=== PATIENT | female | born 1980 | race African-American/Black ===

== ENCOUNTER 2017-06-04 04:10 | Inpatient (IN) | payer OTHER ==
[2017-06-04 05:20] LABS: BASOPHIL 0.5 % (0-2.0); EOSINOPHIL 0.7 % (0-4.5); MCH 30.1 pg (25.7-33.7); MCHC 33.2 g/dl (32.0-36.0); MEAN CELL VOLUME 90.6 fl (80-96); MEAN PLT VOLUME 8.8 fl (7.5-11.1); NEUTROPHILS 74.2 % (42.8-82.8); PLATELET COUNT 320 K/MM3 (134-434); RDW 14.2 % (11.6-15.6)
[2017-06-04] MEDS ORDERED: DEXTROSE 5%-LACTATED RINGERS 1,000 ML IV SCH (05:30)
[2017-06-04] MEDS ORDERED: CLINDAMYCIN 600MG PREMIX IVPB 600 MG/50 ML BAG IVPB SCH ×2 (05:30→11:00)
[2017-06-04] MEDS ORDERED: DINOPROSTONE 10 MG VAGINAL SUPPOSITORY VG ONE (05:30)
[2017-06-04 05:34] LABS: INR 0.96 (0.82-1.09); PROTHROMBIN TIME (PATIENT) 10.8 SEC (9.98-11.88)
[2017-06-04 05:36] LABS: ACTIVATED PTT 27.7 SECONDS (26.9-34.4)
[2017-06-04 05:38] VITALS: BMI 30.8
--- NOTE | 2017-06-04 05:39 | HP ---
Past Medical History - Admission Chief Complaint: Rupture of membrane History Source: Patient Limitations to Obtaining History: No Limitations - Past Medical History ...: 5 ...Para: 2 ...EDC by Jose Luis: 06/07/17 - Past Surgical History Past Surgical History: Yes: None Hx Myomectomy: No Hx Transabdominal Cerclage: No - Smoking History Smoking history: Current every day smoker Aproximately how many cigarettes per day: 4 - Alcohol/Substance Use Hx Alcohol Use: No History of Substance Use: reports: None - Social History History of Recent Travel: No Home Medications - Allergies Allergies/Adverse Reactions: Allergies Allergy/AdvReac Type Severity Reaction Status Date / Time acetaminophen [From Vicodin] Allergy Intermediate Itching Verified 06/04/17 05: 02 hydrocodone bitartrate Allergy Intermediate Itching Verified 06/04/17 05:02 [From Vicodin] Penicillins Allergy Intermediate Hives Verified 06/04/17 05:02 - Home Medications Home Medications: Ambulatory Orders Albuterol Sulfate Inhaler - [Ventolin Hfa Inhaler -] 1 - 2 inh PO PRN PRN Vit No.130/Iron/FA [ Vitamins] 1 each PO DAILY 05/26/17 Family Disease History - Family Disease History Family History: Unremarkable Review of Systems - Review of Systems Constitutional: reports: No Symptoms Eyes: reports: No Symptoms HENT: reports: No Symptoms Neck: reports: No Symptoms Cardiovascular: reports: No Symptoms Respiratory: reports: No Symptoms Gastrointestinal: reports: No Symptoms Genitourinary: reports: Other (Gross pooling) Breasts: reports: No Symptoms Reported Musculoskeletal: reports: No Symptoms Neurological: reports: No Symptoms Psychiatric: reports: No Symptoms Pain Intensity: 0 Physical Exam - Maternity Constitutional: Yes: Well Nourished Eyes: Yes: Conjunctiva Clear HENT: Yes: Atraumatic Neck: Yes: Supple Cardiovascular: Yes: Regular Rate and Rhythm Lungs: Clear to auscultation - Abdominal Exam/OB Number of Fetuses: Single Presentation: Vertex - Vaginal Exam/OB Vaginal Bleediing: No Speculum Exam: No Dilatation (cm): 1 Effacement (%): 50 Amniotic Fluid: Yes: Clear Station: -4 - Physical Exam Musculoskeletal: Yes: WNL Extremities: Yes: WNL ...Motor Strength: WNL Psychiatric: Yes: Alert, Oriented - Labs Lab Results: CBC, BMP 06/04/17 04:55 Problem List - Problems (1) Spontaneous rupture of amniotic membranes Code(s): [id number] - Assessment/Plan Spontaneous rupture of membrane Admit to L&D Cervidil induction Re-Evaluate in 12 hours or before if indicated
[2017-06-04 05:47] LABS: ANION GAP 11 (8-16); CALCIUM 8.2 mg/dL (8.5-10.1); CO2 21 mmol/L (21-32); CREATININE 0.4 mg/dL (0.55-1.02); GLUCOSE,RANDOM 76 mg/dL (74-106)
[2017-06-04 05:48] LABS: URINE APPEARANCE CLOUDY; URINE BILIRUBIN NEGATIVE (NEGATIVE); URINE BLOOD NEGATIVE (NEGATIVE); URINE COLOR YELLOW; URINE GLUCOSE (UA) NEGATIVE (NEGATIVE); URINE KETONE 1+ (NEGATIVE); URINE NITRITE NEGATIVE (NEGATIVE); URINE PROTEIN NEGATIVE (NEGATIVE); URINE UROBILINOGEN NEGATIVE mg/dL (0.2-1.0)
[2017-06-04 05:48] LABS: SGOT/AST 13 U/L (15-37); SGPT/ALT 23 U/L (12-78)
[2017-06-04 06:05] LABS: URINE MARIJUANA THC POSITIVE ng/ml (CUTOFF=50)
[2017-06-04] MEDS ORDERED: CLINDAMYCIN 900 MG PREMIX IVPB 900 MG/50 ML BAG IVPB SCH (09:00)
[2017-06-04] MEDS: OXYTOCIN 20 UNITS in 0.9% NS 20 UNIT/1,000 ML INFUS.BAG IV SCH ×2 (11:15→12:22)
[2017-06-04] MEDS ORDERED: BENZOCAINE 20% 57 GM BOTTLE TP PRN (11:17)
[2017-06-04] MEDS ORDERED: BISACODYL 10 MG SUPP.RECT RC PRN (11:17)
[2017-06-04] MEDS ORDERED: BENZOCAINE 28 GM HEMORRHOIDAL OINTMENT TP PRN (11:17)
[2017-06-04] MEDS ORDERED: ACETAMINOPHEN 325 MG TABLET (FP) PO PRN (11:17)
[2017-06-04] MEDS ORDERED: METHYLERGONOVINE MALEATE 0.2 MG/1 ML AMP IM PRN (11:17)
[2017-06-04] MEDS ORDERED: WITCH HAZEL 50% (TUCKS) 40 PAD/JAR PAD TP PRN (11:17)
--- NOTE | 2017-06-04 11:21 | PN ---
Delivery - Delivery Vaginal Delivery: Spontaneous Type of Anesthesia: Local Episiotomy/Laceration: None EBL (cc): 250 Delivery, Single - Feeding Plan Initial Plan: Elected not to breastfeed exclusively throughout hospitalization Remarks - Remarks Remarks: Normal spontaneous vaginal delivery of a live boy over intact perineum. Nose / Oropharynx suctioned @ perineum. Nuchal cord x 1 clamped and cut. Placenta expelled spontaneously intact. Mother in stable condition
[2017-06-04 12:39] LABS: URINE LEUK ESTERASE Negative (NEGATIVE)
[2017-06-04] MEDS: IBUPROFEN 600 MG TABLET (FP) PO PRN ×3 (12:51→22:20)
[2017-06-04] MEDS: FERROUS SO4 325 MG TABLET (FP) PO SCH ×2 (12:51→17:16)
[2017-06-05] MEDS: IBUPROFEN 600 MG TABLET (FP) PO PRN ×2 (02:17→15:09)
--- NOTE | 2017-06-05 03:59 | PN ---
Post Progress Note - Subjective Subjective: 37 yo Para 3 status post vaginal delivery, seen and evaluated. Doing well, no complaints. Post Day: 1 Type of Delivery: Vital Signs: Vital Signs Temperature 98.3 F 06/05/17 01:32 Pulse Rate 84 06/05/17 01:32 Respiratory Rate 18 06/05/17 01:32 Blood Pressure 141/83 06/05/17 01:32 O2 Sat by Pulse Oximetry (%) 100 06/04/17 12:15 Uterus: Yes: Fundus Firm Abdomen/GI: Yes: Tolerating PO Lochia: Yes: Rubra Lochia, amount: Moderate Extremities: Yes: Calves non-tender Perineum: Yes: Laceration (Healing) Activity: Ambulating - Labs Labs: CBC WBC 10.0 K/mm3 (4.0-10.0) 06/04/17 04:55 RBC 3.26 M/mm3 (3.60-5.2) L 06/04/17 04:55 Hgb 9.8 GM/dL (10.7-15.3) L 06/04/17 04:55 Hct 29.5 % (32.4-45.2) L 06/04/17 04:55 MCV 90.6 fl (80-96) 06/04/17 04:55 MCH 30.1 pg (25.7-33.7) 06/04/17 04:55 MCHC 33.2 g/dl (32.0-36.0) 06/04/17 04:55 RDW 14.2 % (11.6-15.6) 06/04/17 04:55 Plt Count 320 K/MM3 (134-434) 06/04/17 04:55 MPV 8.8 fl (7.5-11.1) 06/04/17 04:55 Neutrophils % 74.2 % (42.8-82.8) 06/04/17 04:55 Lymphocytes % 19.1 % (8-40) 06/04/17 04:55 Monocytes % 5.5 % (3.8-10.2) 06/04/17 04:55 Eosinophils % 0.7 % (0-4.5) D 06/04/17 04:55 Basophils % 0.5 % (0-2.0) 06/04/17 04:55 Retic Count 2.07 % (0.5-1.5) H 06/04/17 04:55 Problem List - Problems (1) Spontaneous rupture of amniotic membranes Code(s): LON0706 - (2) Status post vaginal delivery Code(s): ZUM6776 - Assessment/Plan Status post vaginal delivery Stable Continue routine care
--- NOTE | 2017-06-05 04:02 | DS ---
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 Vital Signs: Vital Signs Temperature 98.3 F 06/05/17 01:32 Pulse Rate 84 06/05/17 01:32 Respiratory Rate 18 06/05/17 01:32 Blood Pressure 141/83 06/05/17 01:32 O2 Sat by Pulse Oximetry (%) 100 06/04/17 12:15 Constitutional: Yes: Well Nourished Eyes: Yes: Conjunctiva Clear HENT: Yes: Atraumatic Neck: Yes: Supple Cardiovascular: Yes: Regular Rate and Rhythm Respiratory: Yes: Regular Gastrointestinal: Yes: Normal Bowel Sounds ...Rectal Exam: Yes: WNL External Genitalia: Yes: Normal Vaginal Exam: Yes: Normal Cervix: Yes: Normal Uterus: Yes: Firm ....Post : Yes: Uterus firm Neurological: Yes: Alert, Oriented ...Motor Strength: WNL Psychiatric: Yes: Alert, Oriented Labs: CBC, BMP 06/04/17 04:55 06/04/17 04:55 Delivery - Delivery Vaginal Delivery: Spontaneous Type of Anesthesia: Local Episiotomy/Laceration: None EBL (cc): 250 Delivery, Single - Stages of Labor Date 1st Stage Initiatied: 06/04/17 Time 1st Stage Initiated: 03:30 Date 2nd Stage Initiated: 06/04/17 Time 2nd Stage Initiated: 10:57 Date of Delivery: 06/04/17 Time of Delivery: 11:05 Time Placenta Delivered: 11:15 - 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 Present: Yes Name: Linda Giron Gender: Male Weight: 5 lb 10 oz Position: Left, OA Total Hours ROM (Hrs/Mins): 7hrs 35min - 1 Minute Total Score: 9 5 Minutes Total Score: 9 - [place] Feeding Plan Initial Plan: Elected not to breastfeed exclusively throughout hospitalization Discharge Summary Reason For Visit: LABOR ADMIT Current Active Problems Spontaneous rupture of amniotic membranes (Acute) Status post vaginal delivery (Acute) Procedures: Principal: Normal spontaneous vaginal delivery Hospital Course: Routine care Condition: Good - Instructions Diet, Activity, Other Instructions: Regular diet No douching, no sexual intercourse x 6 weeks F/U with MD in 6 weeks Referrals: Anette Villarreal MD [Staff Physician] - Disposition: HOME - Home Medications Comprehensive Discharge Medication List: Ambulatory Orders Albuterol Sulfate Inhaler - [Ventolin Hfa Inhaler -] 1 - 2 inh PO PRN PRN Vit No.130/Iron/FA [ Vitamins] 1 each PO DAILY 05/26/17
[2017-06-05 07:38] LABS: BASOPHIL 0.2 % (0-2.0); EOSINOPHIL 1.1 % (0-4.5); MCH 29.8 pg (25.7-33.7); MCHC 32.8 g/dl (32.0-36.0); PLATELET COUNT 266 K/MM3 (134-434); WHITE BLOOD COUNT 11.4 K/mm3 (4.0-10.0)
[2017-06-05] MEDS: FERROUS SO4 325 MG TABLET (FP) PO SCH ×3 (09:11→17:29)
[2017-06-05] MEDS: PRENATAL VITAMINS W/ FOLIC ACID TABLET (FP) PO SCH (09:11)
[2017-06-05] MEDS ORDERED: SENNOSIDES/DOCUSATE COMBO (SENNA PLUS) TABLET (UD) PO PRN (22:00)
[2017-06-06] MEDS: IBUPROFEN 600 MG TABLET (FP) PO PRN ×2 (07:59→11:57)
[2017-06-06] MEDS: FERROUS SO4 325 MG TABLET (FP) PO SCH ×2 (07:59→11:57)
[2017-06-06 08:20] VITALS: BP 136/75; PULSE 77; TEMP 98.1
[2017-06-06] MEDS: PRENATAL VITAMINS W/ FOLIC ACID TABLET (FP) PO SCH (09:25)
== END 2017-06-06 15:30 | disposition home or self-care (01) | DRG 560 ==
LOC: JLDR 04:10 → J3W 12:33
PROVIDERS: ADMIT Obstetrics & Gynecology; ATTEND Obstetrics & Gynecology
PROC: 10E0XZZ Delivery of Products of Conception, External Approach (ICD-10-PCS; principal; 2017-06-04)
PROC: 3E0P7VZ Introduction of Hormone into Female Reproductive, Via Natural or Artificial Opening (ICD-10-PCS; 2017-06-04)
DX: O80 Encounter for full-term uncomplicated delivery (principal); Z3A.39 39 weeks gestation of pregnancy; Z37.0 Single live birth
CPT/HCPCS: 36415; 59409; 80048; 80307; 81003; 82977; 83010; 84450; 84460; 84550; 85025; 85044; 85610; 85730; 86593; 86850; 86900; 86901

== ENCOUNTER 2019-09-24 19:40 | Inpatient (IN) | payer OTHER ==
[2019-09-24] MEDS ORDERED: PROMETHAZINE HCL 25 MG/1 ML VIAL IVPUSH ONE (20:51)
[2019-09-24] MEDS ORDERED: BUTORPHANOL TARTRATE 1 MG/ML VIAL IVPB ONE (20:51)
[2019-09-24] MEDS ORDERED: DEXTROSE 5%-LACTATED RINGERS 1,000 ML IV SCH (21:00)
--- NOTE | 2019-09-24 21:01 | HP ---
Past Medical History - Primary Care Physician PCP:: Nikole Clemens - Admission Chief Complaint: 39 yrs , 39.4/7 weeks iup admitted in early labor.Onset LP since 4.00 PM. h/o mild chr hypertension. no c/o headche or visual disturbace or epigastric pain. HELLP work up on 09/17/19 in the clinic was normal History of Present Illness: PNC at [address] [place] [address] wt gain 05/08/20 Panel ; O Pos, vaicella immune , Hbsag neg, Hep c nr, Rubella immune . lead neg, sickle neg Hiv neg, tallidum ab neg 09/06/19 GBS neg , anemia , hiv neg gc/ct neg h/o 1 hr gct & quantiferon ? neg BP range in [facility] diastolic 80-87 range , systolic 130-145 sonograms done by m, last one in Jul nst was done in the clinic 09/24/19 History Source: Patient, Medical Record Limitations to Obtaining History: No Limitations - Past Medical History Cardiovascular: Yes: HTN (mild elevations, no meds , not symptomatic) Pulmonary: Yes: Asthma (last attack many years ago) Gastrointestinal: Yes: Other (none) Hepatobiliary: No: Hepatitis B, Hepatitis C Renal/: No: UTI ...: 6 ...Para: 3 ...Term: 3 (g1 12/24/02 5' G2 08/22/05 6', G4 06/04/17 5'11" ) ...Induced : 2 (g3-2009 & g5-2017 -1st trimester ) ...LMP: 02/25/19 (mistaken dates ) ...EDC by Sono: 09/27/19 (403/7 weeks by sono ) Heme/Onc: Yes: Anemia (po pnv & iron) Infectious Disease: No: AIDS, HIV, STD's, Tuberculosis Psych: No: Addictions, Anxiety, Bipolar, Depression, Panic, Psychosis, Schizophrenia, Other Endocrine: No: Diabetes Mellitus, Hyperparathyroidism, Hypothyroidism - Past Surgical History Past Surgical History: Yes: None Hx Myomectomy: No Hx Transabdominal Cerclage: No - Smoking History Smoking history: Current every day smoker Have you smoked in the past 12 months: Yes Aproximately how many cigarettes per day: 4 - Alcohol/Substance Use Hx Alcohol Use: No History of Substance Use: reports: None - Social History History of Recent Travel: No Home Medications - Allergies Allergies/Adverse Reactions: Allergies Allergy/AdvReac Type Severity Reaction Status Date / Time acetaminophen [From Vicodin] Allergy Intermediate Itching Verified 06/04/17 05:02 hydrocodone bitartrate Allergy Intermediate Itching Verified 06/04/17 05:02 [From Vicodin] Penicillins Allergy Intermediate Hives Verified 06/04/17 05:02 - Home Medications Home Medications: Ambulatory Orders Ferrous Sulfate [Iron] 325 mg PO BID 09/24/19 Pnv 29-1 Tablet 1 tab PO DAILY 09/24/19 Physical Exam - Maternity Vital Signs: Selected Entries 09/24/19 09/24/19 20:30 21:00 Temperature 98.5 F Pulse Rate 110 H 80 Blood Pressure 133/97 137/93 Weight 185 lb Constitutional: Yes: Well Nourished, Mild Distress Eyes: Yes: WNL HENT: Yes: WNL Neck: Yes: WNL Cardiovascular: Yes: WNL Lungs: Clear to auscultation Breast(s): Yes: WNL - Abdominal Exam/OB Fundal Height: 38 Number of Fetuses: Single Presentation: Vertex Contractions: Yes Regularity: Irregular Intensity: Mild/Mod (4-7-8 min) Monitor Mode: External Heart Rate (range): 130-140 Heart Rate Location: [facility] Category: I Accelerations: Uniform Decelerations: None - Vaginal Exam/OB Vaginal Bleediing: Old Blood Speculum Exam: No Dilatation (cm): 1 Effacement (%): 60 Amniotic Membrane Status: Intact Presentation: Vertex/Position Station: -3 - Physical Exam Musculoskeletal: Yes: WNL Extremities: Yes: WNL. No: Calf Tenderness Edema: LLE: 1+, RLE: 1+ Integumentary: Yes: Tattoos Deep Tendon Reflex Grade: Normal +2 ...Motor Strength: WNL Psychiatric: Yes: WNL, Alert, Oriented - Labs Lab Results: Laboratory Tests 09/24/19 09/24/19 09/24/19 21:00 21:00 21:00 WBC 7.9 Hgb 10.7 Hct 32.7 D Plt Count 252 PT with INR 10.30 INR 0.87 PTT (Actin FS) 28.5 Sodium 139 Potassium 4.0 Chloride 106 Carbon Dioxide 23 Anion Gap 10 BUN 15.6 Creatinine 0.6 Random Glucose 72 L Uric Acid 5.9 Calcium 8.7 GGT 25 AST 11 L ALT 20 U Random Total Protein Urine Creatinine Protein/Creatinin Ratio Blood Type Antibody Screen 09/24/19 09/24/19 21:00 21:25 WBC Hgb Hct Plt Count PT with INR INR PTT (Actin FS) Sodium Potassium Chloride Carbon Dioxide Anion Gap BUN Creatinine Random Glucose Uric Acid Calcium GGT AST ALT U Random Total Protein 15.1 H Urine Creatinine 64.0 Protein/Creatinin Ratio 0.2 Blood Type O POSITIVE Antibody Screen Negative Problem List - Problems (1) with 39 completed weeks gestation Code(s): Z3A.39 - 39 WEEKS GESTATION OF (2) Chronic hypertension during Code(s): O10.919 - UNSP PRE-EXISTING HTN COMP , UNSP TRIMESTER (3) AMA (advanced maternal age) multigravida 35+ Code(s): O09.529 - SUPERVISION OF ELDERLY MULTIGRAVIDA, UNSPECIFIED TRIMESTER Assessment/Plan 39 yrs , 39.4/7 weeks iup mild chr htn not on any meds admitted in early labor 'gbs neg Plan : pitocin augmentation trial of labor for vaginal delivery 11.00 PM Repeat Pelvic Exam : cx 2 cm/60%/Mi vx -3 ?pelvis adequate BP 149/93 uc irregular 7-8 min twice variable decel noted otherwise fhr reassuring , cat -1 po Labetalol 200 mg given Iv pitocin Augmentation started
[2019-09-24 21:35] LABS: BASO % 0.4 % (0-2.0); EOS % 0.4 % (0-4.5); HEMATOCRIT 32.7 % (32.4-45.2); HEMOGLOBIN 10.7 GM/dL (10.7-15.3); LYMPH % 18.8 % (8-40); MCH 29.9 pg (25.7-33.7); MCHC 32.9 g/dl (32.0-36.0); MEAN PLT VOLUME 9.6 fl (7.5-11.1); NEUT % 74.4 % (42.8-82.8); PLATELET COUNT 252 K/MM3 (134-434); RBC 3.59 M/mm3 (3.60-5.2); RDW 14.7 % (11.6-15.6); RETICULOCYTES 1.86 % (0.5-1.5); WHITE BLOOD COUNT 7.9 K/mm3 (4.0-10.0)
[2019-09-24 21:57] LABS: BLOOD UREA NITROGEN 15.6 mg/dL (7-18); CALCIUM 8.7 mg/dL (8.5-10.1); CREATININE 0.6 mg/dL (0.55-1.3); URIC ACID 5.9 mg/dL (2.6-7.2)
[2019-09-24 22:01] LABS: INR 0.87 (0.83-1.09); PROTHROMBIN TIME (PATIENT) 10.3 SEC (9.7-13.0)
[2019-09-24 22:03] LABS: URINE APPEARANCE CLEAR; URINE BILIRUBIN NEGATIVE (NEGATIVE); URINE COLOR YELLOW; URINE GLUCOSE (UA) NEGATIVE (NEGATIVE); URINE KETONE NEGATIVE (NEGATIVE); URINE LEUK ESTERASE NEGATIVE (NEGATIVE); URINE NITRITE NEGATIVE (NEGATIVE); URINE PROTEIN NEGATIVE (NEGATIVE); URINE UROBILINOGEN 0.2 mg/dL (0.2-1.0)
[2019-09-24 22:04] LABS: ACTIVATED PTT 28.5 SECONDS (25.2-36.5)
[2019-09-24 22:21] VITALS: BMI 32.2
[2019-09-24] MEDS ORDERED: OXYTOCIN 30 UNITS in 0.9% NS 30 UNIT/500 ML INFUS.BAG IVPB ONE (23:01)
[2019-09-24] MEDS ORDERED: LABETALOL HCL 200 MG TABLET (FP) PO ONE (23:02)
[2019-09-24] MEDS ORDERED: LABETALOL HCL 200 MG TABLET (FP) ONE (23:03)
[2019-09-24] MEDS ORDERED: OXYTOCIN 30 UNITS in 0.9% NS 30 UNIT/500 ML INFUS.BAG IVPB SCH (23:15)
[2019-09-24] MEDS ORDERED: BUTORPHANOL TARTRATE 1 MG/ML VIAL ONE ×2 (23:42)
[2019-09-24] MEDS ORDERED: PROMETHAZINE HCL 25 MG/1 ML VIAL ONE (23:42)
[2019-09-25] MEDS ORDERED: OXYTOCIN 20 UNITS in 0.9% NS 20 UNIT/1,000 ML INFUS.BAG IV ONE ×2 (01:17→11:15)
[2019-09-25] MEDS ORDERED: LIDOCAINE HCL 1% PRESERVATIVE FREE - 30ML VIAL ONE (01:17)
[2019-09-25] MEDS: ACETAMINOPHEN 325 MG TABLET (FP) PO PRN ×3 (01:30→15:55)
[2019-09-25] MEDS: oxyCODONE HCL 5 MG TABLET PO PRN ×3 (01:30→15:55)
[2019-09-25] MEDS ORDERED: ACETAMINOPHEN 325 MG TABLET (FP) ONE ×3 (01:31→15:53)
[2019-09-25] MEDS ORDERED: oxyCODONE HCL 5 MG TABLET ONE ×3 (01:31→15:54)
[2019-09-25] MEDS ORDERED: MAGNESIUM 4GM/H20 - 4 GM/100 ML IVPB IVPB ONE ×2 (02:30→02:45)
--- NOTE | 2019-09-25 02:35 | PN ---
Delivery - Delivery Vaginal Delivery: Spontaneous (pt pushed baby out before I arrived , Vx OA position .cord clamped cut . vagina perineum inspected intact, no laceration. Placenta & membranes delievered completely . 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 h/o C hr HTN intrapartum stadol 2mg + phenrgan 25 ng iv stat given one time pitocin augmentation started PP BP 155/118, 161/96, 147/90 Plan : MgSo4 prophylaxis Labetalol PRN
[2019-09-25] MEDS ORDERED: BENZOCAINE 28 GM HEMORRHOIDAL OINTMENT TP PRN (02:39)
[2019-09-25] MEDS ORDERED: BENZOCAINE 20% 57 GM BOTTLE TP PRN (02:39)
[2019-09-25] MEDS ORDERED: IBUPROFEN 600 MG TABLET (FP) PO PRN (02:39)
[2019-09-25] MEDS ORDERED: BISACODYL 10 MG SUPP.RECT RC PRN (02:39)
[2019-09-25] MEDS ORDERED: WITCH HAZEL 50% (TUCKS) 40 PAD/JAR PAD TP PRN (02:39)
[2019-09-25] MEDS ORDERED: METHYLERGONOVINE MALEATE 0.2 MG/1 ML AMP IM PRN (02:39)
[2019-09-25] MEDS ORDERED: OXYTOCIN 20 UNITS in 0.9% NS 20 UNIT/1,000 ML INFUS.BAG IV SCH (02:45)
[2019-09-25] MEDS ORDERED: MAGNESIUM SULFATE 20GM/500ML - 20 GM/500 ML INFUS.BAG IVPB SCH (02:45)
--- NOTE | 2019-09-25 08:34 | PN ---
Post Progress Note - Subjective Subjective: c/o cramps no c/o headache no c/o heavy bleeding slept well Post Day: 0 Type of Delivery: Vital Signs: Vital Signs Temperature 98.7 F 09/25/19 06:00 Pulse Rate 79 09/25/19 07:00 Respiratory Rate 18 09/25/19 07:00 Blood Pressure 146/100 09/25/19 07:00 O2 Sat by Pulse Oximetry (%) Selected Entries 09/25/19 09/25/19 09/25/19 04:00 05:00 06:00 Temperature 98.7 F Pulse Rate 65 68 72 Blood Pressure 169/93 137/87 164/97 09/25/19 06:30 Temperature Pulse Rate Blood Pressure 136/84 Breast Exam: Yes: Soft, Other (states she will consider ). No: Engorged Uterus: Yes: Fundus Firm, Fundus below umbilicus Lochia, amount: Small Extremities: Yes: Calves non-tender Perineum: Yes: Intact Activity: Other (oob to bathroom ) - Labs Labs: CBC WBC 7.9 K/mm3 (4.0-10.0) 09/24/19 21:00 RBC 3.59 M/mm3 (3.60-5.2) L 09/24/19 21:00 Hgb 10.7 GM/dL (10.7-15.3) 09/24/19 21:00 Hct 32.7 % (32.4-45.2) D 09/24/19 21:00 MCV 91.0 fl (80-96) 09/24/19 21:00 MCH 29.9 pg (25.7-33.7) 09/24/19 21:00 MCHC 32.9 g/dl (32.0-36.0) 09/24/19 21:00 RDW 14.7 % (11.6-15.6) 09/24/19 21:00 Plt Count 252 K/MM3 (134-434) 09/24/19 21:00 MPV 9.6 fl (7.5-11.1) 09/24/19 21:00 Absolute Neuts (auto) 5.9 K/mm3 (1.5-8.0) 09/24/19 21:00 Neutrophils % 74.4 % (42.8-82.8) 09/24/19 21:00 Lymphocytes % 18.8 % (8-40) D 09/24/19 21:00 Monocytes % 6.0 % (3.8-10.2) 09/24/19 21:00 Eosinophils % 0.4 % (0-4.5) 09/24/19 21:00 Basophils % 0.4 % (0-2.0) 09/24/19 21:00 Nucleated RBC % 0 % (0-0) 09/24/19 21:00 Retic Count 1.86 % (0.5-1.5) H D 09/24/19 21:00 Laboratory Tests 09/25/19 06:45 Magnesium 3.7 H Other Findings, Remarks: reflexex normal rs cta Problem List - Problems (1) with 39 completed weeks gestation Code(s): Z3A.39 - 39 WEEKS GESTATION OF (2) Chronic hypertension during Code(s): O10.919 - UNSP PRE-EXISTING HTN COMP , UNSP TRIMESTER (3) AMA (advanced maternal age) multigravida 35+ Code(s): O09.529 - SUPERVISION OF ELDERLY MULTIGRAVIDA, UNSPECIFIED TRIMESTER (4) (normal spontaneous vaginal delivery) Code(s): O80 - ENCOUNTER FOR FULL-TERM UNCOMPLICATED DELIVERY (5) Encounter for care and examination after delivery Code(s): Z39.2 - ENCOUNTER FOR ROUTINE FOLLOW-UP Assessment/Plan stable plan ct MgSo4 for until 4.00 PM pt probabnly will need procardia 30 XL , may be given afterMgSo4 is discontinued Dr Ayala consult requested for BP management pt counselled for lo salt diet ,frelaxation ex for HTN anemia counselled
[2019-09-25] MEDS: FERROUS SO4 325 MG TABLET (FP) PO SCH ×2 (09:41→18:20)
[2019-09-25] MEDS: PRENATAL VITAMINS W/ FOLIC ACID TABLET (FP) PO SCH (11:47)
--- NOTE | 2019-09-25 12:03 | CON.NEP ---
Consult Consult Specialty:: Nephrology Referred by:: [employer] Reason for Consultation:: hypertension - History of Present Illness Chief Complaint: /Labor History of Present Illness: This is a 39 year old woman with history of Asthma and GERD who presented from home at 39 weeks gestation now s/p vaginal dilivery with hypertension. She reports having high BP for that last few weeks. Was not on any antihypertensives. Denies any GUAMAN, blurry vision, chest pain, fever, chills, N/V/D. On Mg sulfate gtt. On Oxytocin. No swelling. Mother has hypertension diagnosed in her 40's. - History Source History Provided By: Patient Limitations to Obtaining History: No Limitations - Past Medical History Cardio/Vascular: Yes: HTN (mild elevations, no meds , not symptomatic) Pulmonary: Yes: Asthma (last attack many years ago) Gastrointestinal: Yes: GERD, Other (none) Hepatobiliary: No: Hepatitis B, Hepatitis C Renal/: No: UTI Infectious Disease: No: AIDS, HIV, STD's, Tuberculosis Psych: No: Addictions, Anxiety, Bipolar, Depression, Panic, Psychosis, Schizophrenia, Other Endocrine: No: Diabetes Mellitus, Hyperparathyroidism, Hypothyroidism - Past Surgical History Past Surgical History: Yes: None - Alcohol/Substance Use Hx Alcohol Use: No History of Substance Use: reports: None - Smoking History Smoking history: Current every day smoker Have you smoked in the past 12 months: Yes Aproximately how many cigarettes per day: 4 - Social History History of Recent Travel: No Home Medications - Allergies Allergies/Adverse Reactions: Allergies Allergy/AdvReac Type Severity Reaction Status Date / Time acetaminophen [From Vicodin] Allergy Intermediate Itching Verified 06/04/17 05:02 hydrocodone bitartrate Allergy Intermediate Itching Verified 06/04/17 05:02 [From Vicodin] Penicillins Allergy Intermediate Hives Verified 06/04/17 05:02 - Home Medications Home Medications: Ambulatory Orders Ferrous Sulfate [Iron] 325 mg PO BID 09/24/19 Pnv 29-1 Tablet 1 tab PO DAILY 09/24/19 Family Medical History Family Hx Cardiac Disorders: Mother (hypertension ) Review of Systems - Review of Systems Constitutional: reports: No Symptoms Eyes: reports: No Symptoms HENT: reports: No Symptoms Neck: reports: No Symptoms Cardiovascular: reports: No Symptoms. denies: Chest Pain, Edema, Palpitations, Shortness of Breath Respiratory: reports: No Symptoms. denies: Orthopnea, SOB, Wheezing Gastrointestinal: reports: No Symptoms. denies: Abdominal Pain Genitourinary: reports: No Symptoms Musculoskeletal: denies: No Symptoms Neurological: denies: No Symptoms Endocrine: reports: No Symptoms Hematology/Lymphatic: reports: No Symptoms Nephrology Consult - Height Height: 5 ft 3.5 in - Weight Weight: 83.915 kg - BMI Body Mass Index (BMI): 32.2 - Lab Results CBC,BMP: CBC, BMP 09/24/19 21:00 09/24/19 21:00 Anion Gap: Anion Gap Anion Gap 10 MMOL/L (8-16) 09/24/19 21:00 - Physical Examination Vital Signs: Vital Signs Temperature 98.2 F 09/25/19 10:00 Pulse Rate 82 09/25/19 11:00 Respiratory Rate 17 09/25/19 11:00 Blood Pressure 140/85 09/25/19 11:00 O2 Sat by Pulse Oximetry (%) Constitutional: Yes: Well Nourished, No Distress, Calm Eyes: Yes: Conjunctiva Clear, EOM Intact HENT: Yes: Atraumatic, Normocephalic Neck: Yes: Supple, Trachea Midline Cardiovascular: Yes: Regular Rate and Rhythm, S1, S2. No: Murmur, Rub Respiratory: Yes: Regular, CTA Bilaterally. No: Diminished, Rales, Rhonchi, SOB, Wheezes Gastrointestinal: Yes: Normal Bowel Sounds, Soft Renal/: No: Bladder Distention Extremities: No: Cold, Cool, Cyanosis Edema: No Integumentary: No: Rash Neurological: Yes: Alert, Oriented Psychiatric: Yes: Alert, Oriented Problem List - Problems (1) hypertension Code(s): O16.5 - UNSPECIFIED MATERNAL HYPERTENSION, COMP THE PUERPERIUM (2) AMA (advanced maternal age) multigravida 35+ Code(s): O09.529 - SUPERVISION OF ELDERLY MULTIGRAVIDA, UNSPECIFIED TRIMESTER (3) with 39 completed weeks gestation Code(s): Z3A.39 - 39 WEEKS GESTATION OF Assessment/Plan 39 year old woman with history of Asthma and GERD who presented from home at 39 weeks gestation now s/p vaginal dilivery with hypertension. 1. hypertension w/o evidence of pre-eclampsia 2. 39 weeks gestation s/p vaginal delivery 3. Hx of Asthma 4. Current smoker To complete mag sulfate infusion Continue labetalol [id number] PRN for hypertension (pt does not have poorly controlled asthma) Low sodium diet smoking cessation Thank you Ottoniel Ayala DO
[2019-09-25] MEDS ORDERED: LABETALOL HCL 200 MG TABLET (FP) ONE (13:23)
[2019-09-25] MEDS: LABETALOL HCL 200 MG TABLET (FP) PO PRN (13:25)
[2019-09-26] MEDS: FERROUS SO4 325 MG TABLET (FP) PO SCH ×2 (08:00→16:59)
[2019-09-26 08:41] LABS: BASO % 0.5 % (0-2.0); HEMOGLOBIN 10.1 GM/dL (10.7-15.3); LYMPH % 22.5 % (8-40); MCH 30.7 pg (25.7-33.7); MCHC 33.6 g/dl (32.0-36.0); MEAN CELL VOLUME 91.3 fl (80-96); MEAN PLT VOLUME 9.5 fl (7.5-11.1); MONO % 4.6 % (3.8-10.2); NEUT % 71.4 % (42.8-82.8); PLATELET COUNT 233 K/MM3 (134-434); RBC 3.28 M/mm3 (3.60-5.2); RDW 14.6 % (11.6-15.6); WHITE BLOOD COUNT 7.9 K/mm3 (4.0-10.0)
--- NOTE | 2019-09-26 09:50 | PN ---
Post Progress Note - Subjective Subjective: Pain controlled. Ambulating. No fevers/chills. Tolerating po Type of Delivery: Vital Signs: Vital Signs Temperature 98.6 F 09/26/19 06:00 Pulse Rate 81 09/26/19 06:00 Respiratory Rate 18 09/26/19 06:00 Blood Pressure 130/78 09/26/19 06:00 O2 Sat by Pulse Oximetry (%) Uterus: Yes: Fundus Firm, Fundus below umbilicus Abdomen/GI: Yes: Abdomen soft, Tolerating PO Lochia: Yes: Rubra Lochia, amount: Small Extremities: Yes: Calves non-tender Activity: Ambulating - Labs Labs: CBC WBC 7.9 K/mm3 (4.0-10.0) 09/26/19 08:00 RBC 3.28 M/mm3 (3.60-5.2) L 09/26/19 08:00 Hgb 10.1 GM/dL (10.7-15.3) L 09/26/19 08:00 Hct 30.0 % (32.4-45.2) L 09/26/19 08:00 MCV 91.3 fl (80-96) 09/26/19 08:00 MCH 30.7 pg (25.7-33.7) 09/26/19 08:00 MCHC 33.6 g/dl (32.0-36.0) 09/26/19 08:00 RDW 14.6 % (11.6-15.6) 09/26/19 08:00 Plt Count 233 K/MM3 (134-434) 09/26/19 08:00 MPV 9.5 fl (7.5-11.1) 09/26/19 08:00 Absolute Neuts (auto) 5.6 K/mm3 (1.5-8.0) 09/26/19 08:00 Neutrophils % 71.4 % (42.8-82.8) 09/26/19 08:00 Lymphocytes % 22.5 % (8-40) 09/26/19 08:00 Monocytes % 4.6 % (3.8-10.2) 09/26/19 08:00 Eosinophils % 1.0 % (0-4.5) D 09/26/19 08:00 Basophils % 0.5 % (0-2.0) 09/26/19 08:00 Nucleated RBC % 0 % (0-0) 09/26/19 08:00 Retic Count 1.86 % (0.5-1.5) H D 09/24/19 21:00 Haptoglobin 110 mg/dL (33-278) 09/24/19 21:00 Assessment/Plan 39yo s/p c/b PEC, PPD#1 Routine PP care Monitor BPs Labs reviewed Anticipate d/c to home PPD#2 Rubén Finch MD
[2019-09-26] MEDS: PRENATAL VITAMINS W/ FOLIC ACID TABLET (FP) PO SCH (10:04)
--- NOTE | 2019-09-26 17:28 | PN ---
Progress Note, Physician Chief Complaint: hypertension History of Present Illness: Seen and examined at the bedside awake and alert offers no acute complaints no GUAMAN, cp, blurry vision BP has been borderline but has not required antihypertensive meds - Current Medication List Current Medications: Active Medications Acetaminophen (Tylenol -) 650 mg PO Q3H PRN PRN Reason: PAIN LEVEL 1-5 Last Admin: 09/25/19 15:55 Dose: 650 mg Documented by: Benzocaine (Americaine 20% [place] -) 1 spray TP PRN PRN PRN Reason: PAIN Benzocaine (Americaine Ointment -) 1 applic TP PRN PRN PRN Reason: PAIN Bisacodyl (Dulcolax Suppository -) 10 mg RC PRN PRN PRN Reason: CONSTIPATION Ferrous Sulfate (Feosol -) 325 mg PO BIDWM [facility] Last Admin: 09/26/19 16:59 Dose: 325 mg Documented by: Ibuprofen (Motrin -) 600 mg PO Q4H PRN PRN Reason: PAIN LEVEL 4 - 6 Labetalol HCl (Normodyne -) 200 mg PO Q6H PRN PRN Reason: HYPERTENSION Last Admin: 09/25/19 13:25 Dose: 200 mg Documented by: Methylergonovine Maleate (Methergine Injection -) 0.2 mg IM Q4H PRN PRN Reason: EXCESSIVE BLEEDING (L&D) Oxycodone HCl (Roxicodone -) 5 mg PO Q6H PRN PRN Reason: PAIN LEVEL 7 - 10 Last Admin: 09/25/19 15:55 Dose: 5 mg Documented by: Multivit/Folic Acid/Iron ( Vitamins (Sjr) -) 1 tab PO DAILY [facility] Last Admin: 09/26/19 10:04 Dose: 1 tab Documented by: Senna/Docusate Sodium (Pericolace -) 2 tablet PO HS PRN PRN Reason: CONSTIPATION Witch Yoselin/Glycerin (Tucks Pads -) 1 pad TP PRN PRN PRN Reason: PAIN - Objective Vital Signs: Vital Signs Temperature 98.3 F 09/26/19 10:00 Pulse Rate 89 09/26/19 10:00 Respiratory Rate 17 09/26/19 10:00 Blood Pressure 143/86 09/26/19 10:00 O2 Sat by Pulse Oximetry (%) Constitutional: Yes: No Distress, Calm Neck: Yes: Supple Extremities: No: Cyanosis Edema: Yes Edema: LLE: Trace, RLE: Trace Labs: CBC, BMP 09/26/19 08:00 09/24/19 21:00 INR, PTT INR 0.87 (0.83-1.09) 09/24/19 21:00 Problem List - Problems (1) hypertension Code(s): O16.5 - UNSPECIFIED MATERNAL HYPERTENSION, COMP THE PUERPERIUM (2) AMA (advanced maternal age) multigravida 35+ Code(s): O09.529 - SUPERVISION OF ELDERLY MULTIGRAVIDA, UNSPECIFIED TRIMESTER (3) with 39 completed weeks gestation Code(s): Z3A.39 - 39 WEEKS GESTATION OF Assessment/Plan 39 year old woman with history of Asthma and GERD who presented from home at 39 weeks gestation now s/p vaginal dilivery with hypertension. 1. hypertension w/o evidence of pre-eclampsia 2. 39 weeks gestation s/p vaginal delivery 3. Hx of Asthma 4. Current smoker Blood pressure is borderline but has not required labetalol will continue to trend BP overnight with same labetalol parameters maintain a low sodium diet anticipate discharge tomorrow in AM Thank you Ottoniel Ayala DO
[2019-09-26] MEDS: LABETALOL HCL 200 MG TABLET (FP) PO PRN (21:30)
[2019-09-26] MEDS ORDERED: SENNOSIDES/DOCUSATE COMBO (SENNA PLUS) TABLET (UD) PO PRN (22:00)
[2019-09-27] MEDS: ACETAMINOPHEN 325 MG TABLET (FP) PO PRN (02:12)
[2019-09-27] MEDS: LABETALOL HCL 200 MG TABLET (FP) PO PRN ×2 (03:33→11:42)
--- NOTE | 2019-09-27 07:46 | DS ---
Physical Exam-HISTOLOGIC AIDE Vital Signs: Vital Signs Temperature 98.0 F 09/26/19 21:00 Pulse Rate 77 09/27/19 03:30 Respiratory Rate 20 09/27/19 03:30 Blood Pressure 143/88 09/27/19 03:30 O2 Sat by Pulse Oximetry (%) Constitutional: Yes: Well Nourished, No Distress, Calm Eyes: Yes: WNL, Conjunctiva Clear, EOM Intact HENT: Yes: WNL, Atraumatic, Normocephalic Neck: Yes: WNL, Supple, Trachea Midline Cardiovascular: Yes: WNL, Regular Rate and Rhythm Respiratory: Yes: WNL, Regular, CTA Bilaterally Gastrointestinal: Yes: WNL ...Rectal Exam: Yes: WNL Renal/: Yes: WNL ....Post : Yes: Uterus firm, Uterus non-tender, Slight lochia rubra Breast(s): Yes: WNL Musculoskeletal: Yes: WNL Extremities: Yes: WNL Edema: No Integumentary: Yes: WNL Neurological: Yes: WNL, Alert, Oriented ...Motor Strength: WNL Psychiatric: Yes: WNL, Alert, Oriented Labs: CBC, BMP 09/26/19 08:00 09/24/19 21:00 Delivery - Delivery Vaginal Delivery: Spontaneous (pt pushed baby out before I arrived , Vx OA position .cord clamped cut . vagina perineum inspected intact, no laceration. Placenta & membranes delievered completely . AFluid lightly meconium) Type of Anesthesia: None Episiotomy/Laceration: None EBL (cc): 300 Delivery, Single - Stages of Labor Date 1st Stage Initiatied: 09/24/19 Time 1st Stage Initiated: 16:00 Date 2nd Stage Initiated: 09/24/19 Time 2nd Stage Initiated: 23:30 Date of Delivery: 09/25/19 Time of Delivery: 01:20 Time Placenta Delivered: 01:26 Placenta: Yes: Spontaneous, Uterine Exploration - Condition of Infant Cardiopulmonary Specialist/Landscape Account Manager Present: No Infant Gender: Female Weight: 5 lb 6 oz Position: Left, OA Total Hours ROM (Hrs/Mins): 16 MINUTES - 1 Minute Total Score: 9 5 Minutes Total Score: 9 - Feeding Plan Initial Plan: Elected not to breastfeed exclusively throughout hospitalization Discharge Summary Problems reviewed: Yes Reason For Visit: LABOR Current Active Problems AMA (advanced maternal age) multigravida 35+ (Acute) Chronic hypertension during (Acute) Encounter for care and examination after delivery (Acute) (normal spontaneous vaginal delivery) (Acute) hypertension (Acute) with 39 completed weeks gestation (Acute) Procedures: Principal: Hospital Course: chronic HTN Health Concerns: hypertension Plan of Treatment: cont. labetalol, follow up with PCP Goals: bp 120/80 Condition: Stable - Instructions Diet, Activity, Other Instructions: Regular Diet Follow up in one week for a blood pressure check in the office Referrals: Kamila Pearson CNM [Certified Nurse [employer]] - Ivonne Finch MD [Staff Physician] - Disposition: HOME - Home Medications Comprehensive Discharge Medication List: Ambulatory Orders Ferrous Sulfate [Iron] 325 mg PO BID 09/24/19 Pnv 29-1 Tablet 1 tab PO DAILY 09/24/19 Breast Pump 1 each MC 5XD 30 Days #1 each 09/26/19 Ibuprofen 600 mg PO Q6H PRN #30 tablet 09/26/19
[2019-09-27] MEDS: FERROUS SO4 325 MG TABLET (FP) PO SCH (09:50)
[2019-09-27] MEDS: PRENATAL VITAMINS W/ FOLIC ACID TABLET (FP) PO SCH (11:32)
--- NOTE | 2019-09-27 11:52 | PN ---
Progress Note, Physician Chief Complaint: hypertension History of Present Illness: Seen and examined at the bedside awake and alert offers no acute complaints BP was elevated last night and early this am required antihypertensive medications denies any GUAMAN, CP, sob, abd pain, N/V/D - Current Medication List Current Medications: Active Medications Acetaminophen (Tylenol -) 650 mg PO Q3H PRN PRN Reason: PAIN LEVEL 1-5 Last Admin: 09/27/19 02:12 Dose: 650 mg Documented by: Benzocaine (Americaine 20% [place] -) 1 spray TP PRN PRN PRN Reason: PAIN Benzocaine (Americaine Ointment -) 1 applic TP PRN PRN PRN Reason: PAIN Bisacodyl (Dulcolax Suppository -) 10 mg RC PRN PRN PRN Reason: CONSTIPATION Ferrous Sulfate (Feosol -) 325 mg PO BIDWM [facility] Last Admin: 09/27/19 09:50 Dose: 325 mg Documented by: Ibuprofen (Motrin -) 600 mg PO Q4H PRN PRN Reason: PAIN LEVEL 4 - 6 Last Admin: 09/27/19 02:14 Dose: 600 mg Documented by: Labetalol HCl (Normodyne -) 200 mg PO Q6H PRN PRN Reason: HYPERTENSION Last Admin: 09/27/19 11:42 Dose: 200 mg Documented by: Methylergonovine Maleate (Methergine Injection -) 0.2 mg IM Q4H PRN PRN Reason: EXCESSIVE BLEEDING (L&D) Oxycodone HCl (Roxicodone -) 5 mg PO Q6H PRN PRN Reason: PAIN LEVEL 7 - 10 Last Admin: 09/25/19 15:55 Dose: 5 mg Documented by: Multivit/Folic Acid/Iron ( Vitamins (Sjr) -) 1 tab PO DAILY [facility] Last Admin: 09/27/19 11:32 Dose: 1 tab Documented by: Senna/Docusate Sodium (Pericolace -) 2 tablet PO HS PRN PRN Reason: CONSTIPATION Witch Yoselin/Glycerin (Tucks Pads -) 1 pad TP PRN PRN PRN Reason: PAIN - Objective Vital Signs: Vital Signs Temperature 98.2 F 09/27/19 11:43 Pulse Rate 72 09/27/19 11:43 Respiratory Rate 18 09/27/19 11:43 Blood Pressure 145/95 09/27/19 11:43 O2 Sat by Pulse Oximetry (%) Constitutional: Yes: No Distress, Calm Neck: Yes: Supple Edema: No Neurological: Yes: Alert, Oriented Labs: CBC, BMP 09/26/19 08:00 09/24/19 21:00 INR, PTT INR 0.87 (0.83-1.09) 09/24/19 21:00 Problem List - Problems (1) hypertension Code(s): O16.5 - UNSPECIFIED MATERNAL HYPERTENSION, COMP THE PUERPERIUM (2) AMA (advanced maternal age) multigravida 35+ Code(s): O09.529 - SUPERVISION OF ELDERLY MULTIGRAVIDA, UNSPECIFIED TRIMESTER (3) with 39 completed weeks gestation Code(s): Z3A.39 - 39 WEEKS GESTATION OF Assessment/Plan 39 year old woman with history of Asthma and GERD who presented from home at 39 weeks gestation now s/p vaginal delivery with hypertension. 1. hypertension w/o evidence of pre-eclampsia 2. 39 weeks gestation s/p vaginal delivery 3. Hx of Asthma 4. Current smoker Unfortunately blood pressure is elevated last night and this am Will require Labetalol 200mg this am and BID on discharge pt instructed to monitor BP twice daily at home with an automated BP cuff She was also instructed to maintain a < 2g sodium diet To follow up in our office within 2 weeks of discharge to monitor BP Anticipate discharge home today on oral antihypertensive medications Thank you Ottoniel Ayala DO
[2019-09-27 13:21] VITALS: BP 136/83; PULSE 84; TEMP 98
== END 2019-09-27 14:30 | disposition home or self-care (01) | DRG 560 ==
LOC: JDEL 19:40 → JLDR 20:30 → J3W 09-25 22:10
PROVIDERS: ADMIT Obstetrics & Gynecology; ATTEND Obstetrics & Gynecology
PROC: 10E0XZZ Delivery of Products of Conception, External Approach (ICD-10-PCS; principal; 2019-09-25)
DX: O16.3 Unspecified maternal hypertension, third trimester (principal); Z3A.39 39 weeks gestation of pregnancy; O16.5 Unspecified maternal hypertension, complicating the puerperium; Z37.0 Single live birth; Z39.2 Encounter for routine postpartum follow-up; Z88.0 Allergy status to penicillin; Z88.8 Allergy status to other drugs, medicaments and biological substances
CPT/HCPCS: 36415; 59409; 80048; 81003; 82570; 82977; 83010; 83735; 84156; 84450; 84460; 84550; 85025; 85044; 85610; 85730; 86593; 86850; 86900; 86901

== ENCOUNTER 2020-02-11 00:47 | Emergency (ER) | payer OTHER ==
[2020-02-11 01:26] VITALS: TEMP 98.7; BMI 29.4
--- NOTE | 2020-02-11 01:36 | PDOC ---
*Physical Exam - Vital Signs Last Vital Signs Temp Pulse Resp BP Pulse Ox 98.7 F 76 17 121/86 100 02/11/20 00:50 02/11/20 00:50 02/11/20 00:50 02/11/20 00:50 02/11/20 00:50 ED Treatment Course - LABORATORY CBC & Chemistry Diagram: 02/11/20 02:13 02/11/20 02:13 Medical Decision Making - Medical Decision Making 02/11/20 01:36 Patient seen by the advanced practice provider under my supervision. Ancillary testing reviewed as necessary. I agree with plan as outlined by the advanced practice provider. Discharge - Discharge Information Problems reviewed: Yes Clinical Impression/Diagnosis: Chest pain Qualifiers: Chest pain type: unspecified Qualified Code(s): R07.9 - Chest pain, unspecified Condition: Fair Disposition: HOME - Follow up/Referral Referrals: Jose Douglass MD [Primary Care Provider] - Call tomorrow - Patient Discharge Instructions Patient Printed Discharge Instructions: High Blood Pressure (Hypertension) (Alternative Therapy) Additional Instructions: avoid salty food. continue to monitor your blood pressure at home. - Post Discharge Activity
--- NOTE | 2020-02-11 01:40 | PDOC ---
History of Present Illness - General Chief Complaint: Pain, Acute Stated Complaint: CHEST PAIN Time Seen by Provider: 02/11/20 01:34 History Source: Patient - History of Present Illness Initial Comments: 02/11/20 03:12 39-year-old female complaining of midsternal chest pain for the last 2 days. Patient reports that she has not been taking her blood pressure medication because she ran out. Patient reported her blood pressure at home was 140/112. Denies headache dizziness shortness of breath chest pain now. Patient reports that she has burning sensation difficult to acid reflux now. Patient reports that she took her blood pressure medication prior to arrival. Past medical history of hypertension Past History - Medical History Allergies/Adverse Reactions: Allergies Allergy/AdvReac Type Severity Reaction Status Date / Time hydrocodone bitartrate Allergy Intermediate Itching Verified 02/11/20 01:25 [From Vicodin] Penicillins Allergy Intermediate Hives Verified 02/11/20 01:25 Home Medications: Ambulatory Orders Ferrous Sulfate [Iron] 325 mg PO BID 09/24/19 Pnv 29-1 Tablet 1 tab PO DAILY 09/24/19 Breast Pump 1 each MC 5XD 30 Days #1 each 09/26/19 Ibuprofen 600 mg PO Q6H PRN #30 tablet 09/26/19 Asthma: No Cancer: No Cardiac Disorders: No Diabetes: No GI Disorders: Yes (ACID REFLUX) HTN: Yes Seizures: No Thyroid Disease: No - Psycho-Social/Smoking History Smoking Status: Yes Smoking History: Never smoked Have you smoked in the past 12 months: Yes Number of Cigarettes Smoked Daily: 4 Information on smoking cessation initiated: No - Substance Abuse Hx (Audit-C & DAST Scrn) How often the patient has a drink containing alcohol: Never Score: In Men: 4 or > Positive; In Women: 3 or > Positive: 0 Screen Result (Pos requires Nsg. Audit-10AR): Negative In the last yr the pt used illegal drug/Rx for NonMed reason: No Score: Yes response is considered Positive: 0 Screen Result (Positive result requires Nsg. DAST-10): Negative *Physical Exam - Vital Signs Last Vital Signs Temp Pulse Resp BP Pulse Ox 98.7 F 76 17 121/86 100 02/11/20 00:50 02/11/20 00:50 02/11/20 00:50 02/11/20 00:50 02/11/20 00:50 Heart Score/ECG Review - History History: Slightly suspicious - Electrocardiogram EKG: Normal - Age Age: </= 45 - Risk Factors Risk Factors Heart Score: Yes Hx Hypertension Based on the list above the patient has:: 1-2 risk factors - Troponin Troponin: </= normal limit - Score Heart Score - Total: 1 - ECG Intrepretation Rhythm: Regular Rhythm Comment:: 02/11/20 03:14 NSR: 68 bpm ED Treatment Course - LABORATORY CBC & Chemistry Diagram: 02/11/20 02:13 02/11/20 02:13 ED Progress Note - Progress Note Progress Note: 02/11/20 03:14 A: chest pain P: labs EKG Chest xray Discharge - Discharge Information Problems reviewed: Yes Clinical Impression/Diagnosis: Chest pain Qualifiers: Chest pain type: unspecified Qualified Code(s): R07.9 - Chest pain, unspecified Condition: Fair Disposition: HOME - Follow up/Referral Referrals: Jose Douglass MD [Primary Care Provider] - Call tomorrow - Patient Discharge Instructions Patient Printed Discharge Instructions: High Blood Pressure (Hypertension) (Alternative Therapy) Additional Instructions: avoid salty food. continue to monitor your blood pressure at home. - Post Discharge Activity
[2020-02-11 02:38] LABS: BASO % 0.5 % (0-2.0); HEMATOCRIT 33.3 % (32.4-45.2); HEMOGLOBIN 11.1 GM/dL (10.7-15.3); LYMPH % 44.6 % (8-40); MCH 29.6 pg (25.7-33.7); MCHC 33.2 g/dl (32.0-36.0); MEAN CELL VOLUME 89.1 fl (80-96); MEAN PLT VOLUME 8.6 fl (7.5-11.1); MONO % 5.5 % (3.8-10.2); NEUT % 48.4 % (42.8-82.8); PLATELET COUNT 318 K/MM3 (134-434); RBC 3.73 M/mm3 (3.60-5.2); WHITE BLOOD COUNT 7.1 K/mm3 (4.0-10.0)
[2020-02-11 02:53] LABS: INR 0.97 (0.83-1.09); PROTHROMBIN TIME (PATIENT) 11.4 SEC (9.7-13.0)
[2020-02-11 02:55] LABS: ACTIVATED PTT 29.3 SECONDS (25.2-36.5)
[2020-02-11 03:04] LABS: ALBUMIN 3.4 g/dl (3.4-5.0); ALK PHOS 46 U/L (45-117); ANION GAP 6 MMOL/L (8-16); BILIRUBIN,TOTAL 0.2 mg/dL (0.2-1); BLOOD UREA NITROGEN 18.5 mg/dL (7-18); CALCIUM 8.7 mg/dL (8.5-10.1); CHLORIDE 108 mmol/L (98-107); CO2 25 mmol/L (21-32); CREATININE 0.7 mg/dL (0.55-1.3); GLUCOSE,RANDOM 82 mg/dL (74-106); POTASSIUM 3.7 mmol/L (3.5-5.1); SGOT/AST 18 U/L (15-37); SGPT/ALT 28 U/L (13-61); SODIUM 139 mmol/L (136-145); TOT PROT 7.2 g/dl (6.4-8.2)
[2020-02-11] MEDS ORDERED: FAMOTIDINE 20 MG TABLET PO ONE (03:11)
[2020-02-11] MEDS ORDERED: FAMOTIDINE 20 MG TABLET ONE (03:13)
[2020-02-11 03:32] VITALS: BP 126/81; PULSE 72
--- NOTE | 2020-02-11 09:13 | EKG ---
Test Reason : Blood Pressure : / mmHG Vent. Rate : 068 BPM Atrial Rate : 068 BPM P-R Int : 176 ms QRS Dur : 080 ms QT Int : 402 ms P-R-T Axes : -22 013 046 degrees QTc Int : 427 ms NORMAL SINUS RHYTHM NORMAL ECG WHEN COMPARED WITH ECG OF 22-MAY-2013 12:33, NO SIGNIFICANT CHANGE WAS FOUND Confirmed by MD CRISTIN, JOSÉ MIGUEL ([id number]) on 02/11/2020 9:13:26 AM Referred By: Confirmed By:JOSÉ MIGUEL AMARAL MD
== END 2020-02-11 03:44 | disposition home or self-care (01) ==
LOC: JER 00:47
DX: R07.9 Chest pain, unspecified (principal)
CPT/HCPCS: 36415; 71046-TC-FY; 80053; 82550; 83735; 84484; 85025; 85610; 85730; 93005; 93010; 99285-25

== ENCOUNTER 2020-06-30 01:22 | Emergency (ER) | payer OTHER ==
[2020-06-30 01:32] VITALS: BP 140/80; PULSE 110; TEMP 98.1; BMI 30.4
[2020-06-30] MEDS ORDERED: KETOROLAC TROMETHAMINE 30 MG/1 ML VIAL IM ONE (01:33)
[2020-06-30] MEDS ORDERED: diazePAM 5 MG TABLET PO ONE (01:33)
[2020-06-30] MEDS ORDERED: predniSONE 20 MG TABLET (UD) PO ONE (01:34)
[2020-06-30] MEDS ORDERED: predniSONE 20 MG TABLET (UD) ONE (01:54)
[2020-06-30] MEDS ORDERED: diazePAM 5 MG TABLET ONE (01:54)
[2020-06-30] MEDS ORDERED: KETOROLAC TROMETHAMINE 30 MG/1 ML VIAL ONE (01:55)
== END 2020-06-30 02:09 | disposition home or self-care (01) ==
LOC: JER 01:22
PROC: 3E0233Z Introduction of Anti-inflammatory into Muscle, Percutaneous Approach (ICD-10-PCS; principal; 2020-06-30)
DX: M54.31 Sciatica, right side (principal)
CPT/HCPCS: 99284-25

== ENCOUNTER 2020-11-25 01:43 | Emergency (ER) | payer OTHER ==
[2020-11-25 01:56] VITALS: BP 132/94; PULSE 95; TEMP 98.6; BMI 33.1
[2020-11-25] MEDS ORDERED: ACETAMINOPHEN 1000 MG/100 ML VIAL (NON FORMULARY) IVPB ONE (02:39)
[2020-11-25] MEDS ORDERED: SODIUM CHLORIDE 0.9% 500 ML INFUS.BAG IV ONE (02:39)
[2020-11-25] MEDS ORDERED: METOCLOPRAMIDE HCL INJECTION 10 MG/2 ML VIAL IVPB ONE (02:39)
[2020-11-25] MEDS ORDERED: METOCLOPRAMIDE HCL INJECTION 10 MG/2 ML VIAL ONE (02:45)
[2020-11-25 03:20] LABS: BASO % 0.3 % (0-2.0); EOS % 0.4 % (0-4.5); HEMATOCRIT 37.4 % (32.4-45.2); HEMOGLOBIN 12.2 GM/dL (10.7-15.3); LYMPH % 30.5 % (8-40); MCH 29.3 pg (25.7-33.7); MCHC 32.6 g/dl (32.0-36.0); MEAN PLT VOLUME 9.5 fl (7.5-11.1); MONO % 5.4 % (3.8-10.2); NEUT % 63.4 % (42.8-82.8); PLATELET COUNT 302 K/MM3 (134-434); RBC 4.15 M/mm3 (3.60-5.2); RDW 15.7 % (11.6-15.6); WHITE BLOOD COUNT 8.2 K/mm3 (4.0-10.0)
[2020-11-25 03:37] LABS: CHLORIDE 106 mmol/L (98-107); SODIUM 135 mmol/L (136-145)
[2020-11-25 03:39] LABS: CALCIUM 7.9 mg/dL (8.5-10.1); CO2 23 mmol/L (21-32); GLUCOSE,RANDOM 87 mg/dL (74-106)
[2020-11-25 03:40] LABS: ALBUMIN 3.3 g/dl (3.4-5.0)
[2020-11-25 03:42] LABS: SGOT/AST 51 U/L (15-37); SGPT/ALT 35 U/L (13-61)
[2020-11-25 03:43] LABS: CREATININE 0.6 mg/dL (0.55-1.3)
[2020-11-25 03:44] LABS: BILIRUBIN,TOTAL 0.5 mg/dL (0.2-1); TOT PROT 7.6 g/dl (6.4-8.2)
[2020-11-25 03:45] LABS: ALK PHOS 48 U/L (45-117)
[2020-11-25 03:49] LABS: ANION GAP 6 MMOL/L (8-16)
[2020-11-25 05:22] LABS: INR 1.1 (0.83-1.09); PROTHROMBIN TIME (PATIENT) 13.3 SEC (9.7-13.0)
[2020-11-25 05:25] LABS: ACTIVATED PTT 28.7 SECONDS (25.2-36.5)
== END 2020-11-25 05:20 | disposition home or self-care (01) ==
LOC: JER 01:43
PROC: 3E0333Z Introduction of Anti-inflammatory into Peripheral Vein, Percutaneous Approach (ICD-10-PCS; principal; 2020-11-25)
PROC: 3E033GC Introduction of Other Therapeutic Substance into Peripheral Vein, Percutaneous Approach (ICD-10-PCS; 2020-11-25)
DX: R51.9 Headache, unspecified (principal)
CPT/HCPCS: 36415; 70450-TC; 80053; 84132; 84703; 85025; 85610; 85730; 99284-25; J0131

== ENCOUNTER 2022-03-17 00:47 | Emergency (ER) | payer OTHER ==
[2022-03-17 01:12] VITALS: BP 140/89; PULSE 90; RESP 20; TEMP 98.5; BMI 36.3
[2022-03-17] MEDS ORDERED: DEXAMETHASONE SOD PHOSPHATE 10 MG/1 ML VIAL IM ONE (02:28)
[2022-03-17] MEDS ORDERED: DEXAMETHASONE SOD PHOSPHATE 10 MG/1 ML VIAL ONE (02:56)
== END 2022-03-17 03:47 | disposition home or self-care (01) ==
LOC: JER 00:47
PROC: 3E023NZ Introduction of Analgesics, Hypnotics, Sedatives into Muscle, Percutaneous Approach (ICD-10-PCS; principal; 2022-03-17)
DX: J03.90 Acute tonsillitis, unspecified (principal)
CPT/HCPCS: 87070; 87651; 99284-25; J1100

== ENCOUNTER 2022-06-26 13:08 | Emergency (ER) | payer OTHER ==
[2022-06-26 13:15] VITALS: BP 122/81; PULSE 93; RESP 18; TEMP 98.2; BMI 36.3
[2022-06-26] MEDS ORDERED: DEXAMETHASONE LIQUID 0.5 MG/5 ML PO ONE (14:02)
[2022-06-26] MEDS ORDERED: diphenhydrAMINE HCL 50 MG CAPSULE PO ONE (14:03)
[2022-06-26] MEDS ORDERED: FAMOTIDINE 20 MG TABLET PO ONE (14:13)
[2022-06-26] MEDS ORDERED: DEXAMETHASONE SOD PHOSPHATE 10 MG/1 ML VIAL ONE (14:24)
[2022-06-26] MEDS ORDERED: diphenhydrAMINE HCL 25 MG CAPSULE (FP) PO ONE (14:24)
[2022-06-26] MEDS ORDERED: FAMOTIDINE 20 MG TABLET ONE (14:24)
== END 2022-06-26 15:26 | disposition home or self-care (01) ==
LOC: JERFT 13:08
DX: T78.40XA Allergy, unspecified, initial encounter (principal)
CPT/HCPCS: 99283-25